=== PATIENT | female | born 1960 | race Caucasian/White ===

== ENCOUNTER 2020-01-28 06:40 | Emergency (ER) | payer OTHER ==
--- NOTE | 2020-01-28 07:29 | EDM.PDOC ---
ED HPI GENERAL MEDICAL PROBLEM - General Chief Complaint: Respiratory Problem Stated Complaint: SOB Time Seen by Provider: 01/28/20 07:26 Source of Information: Reports: Patient History Limitations: Reports: No Limitations - History of Present Illness Onset: Gradual (two to three days) Duration: Day(s): Location: Reports: Other (throat) - Related Data Allergies Allergy/AdvReac Type Severity Reaction Status Date / Time No Known Allergies Allergy Verified 01/28/20 06:42 Home Meds: Home Meds . [No Known Home Meds] 01/28/20 [History] Past Medical History HEENT History: Reports: None Cardiovascular History: Reports: None Respiratory History: Reports: None Gastrointestinal History: Reports: None Genitourinary History: Reports: None ACADEMIC SUPPORT DIRECTOR History: Reports: None Musculoskeletal History: Reports: None Neurological History: Reports: None Psychiatric History: Reports: None Endocrine/Metabolic History: Reports: None Hematologic History: Reports: None Immunologic History: Reports: None Oncologic (Cancer) History: Reports: None Dermatologic History: Reports: None - Past Surgical History Head Surgeries/Procedures: Reports: None Social & Family History - Family History Family Medical History: Noncontributory - Tobacco Use Smoking Status *Q: Never Smoker - Recreational Drug Use Recreational Drug Use: No ED ROS GENERAL - Review of Systems Review Of Systems: See Below Constitutional: Reports: No Symptoms HEENT: Reports: Throat Pain Respiratory: Reports: No Symptoms Cardiovascular: Reports: No Symptoms Endocrine: Reports: No Symptoms GI/Abdominal: Reports: No Symptoms : Reports: No Symptoms Musculoskeletal: Reports: No Symptoms Skin: Reports: No Symptoms Neurological: Reports: No Symptoms ED EXAM, GENERAL - Physical Exam Exam: See Below Exam Limited By: No Limitations General Appearance: Alert, WD/WN, No Apparent Distress Ears: Normal External Exam, Normal Canal, Hearing Grossly Normal, Normal TMs Ear Exam: Bilateral Ear: Auricle Normal, Canal Normal, TM normal Nose: Normal Inspection, Normal Mucosa, No Blood Throat/Mouth: Normal Inspection, Normal Lips, Normal Teeth, Normal Gums, Normal Oropharynx, Normal Voice, No Airway Compromise, Other (No foreign body seen) Head: Atraumatic, Normocephalic Neck: Normal Inspection, Supple, Non-Tender, Full Range of Motion Respiratory/Chest: No Respiratory Distress, Lungs Clear, Normal Breath Sounds, No Accessory Muscle Use, Chest Non-Tender Cardiovascular: Normal Peripheral Pulses, Regular Rate, Rhythm, No Edema, No Gallop, No JVD, No Murmur, No Rub GI/Abdominal: Normal Bowel Sounds, Soft, Non-Tender, No Organomegaly, No Distention, No Abnormal Bruit, No Mass (Female) Exam: Deferred Rectal (Female) Exam: Deferred Back Exam: Normal Inspection Extremities: Normal Inspection. No: Francia's Sign Neurological: Alert, Oriented, CN II-XII Intact, Normal Reflexes, No Motor/ Sensory Deficits Skin Exam: Warm, Dry, Intact, Normal Color, No Rash Lymphatic: No Adenopathy Course - Vital Signs Text/Narrative:: I talked with Dr. Rutledge (ENT) at 9:57AM and states that he will see the patient through the ED and that he will make the arrangement for the ED in [place]. I discussed this with the patient and she agrees with the transfer to see Dr. Rutledge. Last Recorded V/S: Last Vital Signs Temp 97.2 F 01/28/20 06:43 Pulse 97 01/28/20 06:43 Resp 24 H 01/28/20 06:43 BP 153/73 H 01/28/20 06:43 Pulse Ox 99 01/28/20 06:43 - Orders/Labs/Meds Orders: Active Orders 24 hr Category Date Time Status EKG 12 Lead [EKG Documentation Completion] [RC] STAT Care 01/28/20 06:54 Active Isolation [COMM] Routine Oth 01/28/20 07:29 Active Departure - Departure Time of Disposition: 10:23 Disposition: DC/Tfer to Acute Hospital 02 Condition: Good Clinical Impression: Foreign body in throat Qualifiers: Encounter type: initial encounter Qualified Code(s): T17.208A - Unspecified foreign body in pharynx causing other injury, initial encounter - Discharge Information *PRESCRIPTION DRUG MONITORING PROGRAM REVIEWED*: Yes *COPY OF PRESCRIPTION DRUG MONITORING REPORT IN PATIENT GLADYS: Yes Referrals: PCP,None [Primary Care Provider] - Forms: ED Department Discharge Additional Instructions: The patient is being transferred to Dr. Rutledge (ENT) for further evaluation today. Nothing by mouth for now. Return to the ED if your condition gets worse or should you have any questions or concerns. The following information is given to patients seen in the emergency department who are being discharged to home. This information is to outline your options for follow-up care. We provide all patients seen in our emergency department with a follow-up referral. The need for follow-up, as well as the timing and circumstances, are variable depending upon the specifics of your emergency department visit. If you don't have a primary care physician on staff, we will provide you with a referral. We always advise you to contact your personal physician following an emergency department visit to inform them of the circumstance of the visit and for follow-up with them and/or the need for any referrals to a consulting specialist. The emergency department will also refer you to a specialist when appropriate. This referral assures that you have the opportunity for follow-up care with a specialist. All of these measure are taken in an effort to provide you with optimal care, which includes your follow-up. Under all circumstances we always encourage you to contact your private physician who remains a resource for coordinating your care. When calling for follow-up care, please make the office aware that this follow-up is from your recent emergency room visit. If for any reason you are refused follow-up, please contact the [facility] Emergency Department at and asked to speak to the emergency department charge nurse. Sepsis Event Note - Evaluation Sepsis Screening Result: No Definite Risk - Focused Exam Vital Signs: Vital Signs Temp Pulse Resp BP Pulse Ox 01/28/20 06:43 97.2 F 97 24 H 153/73 H 99 Date Exam was Performed: 01/28/20 Time Exam was Performed: 10:10 - My Orders Last 24 Hours: My Active Orders 01/28/20 07:29 Isolation [COMM] Routine - Assessment/Plan Last 24 Hours: My Active Orders 01/28/20 07:29 Isolation [COMM] Routine
--- NOTE | 2020-01-28 08:24 | CT ---
CT neck Technique: Multiple axial sections through the neck were obtained. Intravenous contrast was not utilized. Reconstructed coronal and sagittal images were obtained. Comparison: No prior neck imaging is available. Findings: Visualized lung apices are clear. Submandibular and parotid salivary glands appear within normal limits. Slight widening of the sella turcica is seen believed to represent a mild so-called "empty sella". Visualized paranasal sinuses show nothing acute. Rounded opacity is seen within the right oropharyngeal soft tissues in the approximate region of the pyriform sinus. This finding measures about 3.5 mm. Hounsfield unit measurements measure in the calcific range. Uncertain if this is a foreign body or represents a small dystrophic calcification. No other soft tissue abnormalities are seen within the pharyngeal soft tissues. No other radiopaque foreign objects are seen. Impression: 1. 3.5 mm opacity within the right side of the oropharyngeal soft tissues. This occurs in the approximate region of the right pyriform sinus. As mentioned above, this has Hounsfield unit measurements of calcification and uncertain if this represents small foreign body or represents dystrophic calcification. 2. Mild empty sella which is usually considered a normal variant. 3. No additional abnormality is appreciated on this noncontrast CT study of the neck. Diagnostic code #3 Study was dictated in MDT
--- NOTE | 2020-01-28 08:24 | CR ---
Chest: 2 views of the chest were obtained. Comparison: No prior chest imaging. Heart size and mediastinum are normal. Lungs are clear with no acute parenchymal change. Bony structures appear within normal limits. Surgical clips are seen within the upper abdomen. Impression: 1. Nothing acute is appreciated on 2 view chest x-ray. Diagnostic code #2 Study was dictated in MDT
== END 2020-01-28 10:30 ==
LOC: MW.ED 06:40
DX: T17.208A Unspecified foreign body in pharynx causing other injury, initial encounter (principal)
CPT/HCPCS: 70490; 70490-26; 71046; 71046-26; 87804; 93005; 99283; 99284-25

== ENCOUNTER 2020-11-29 04:49 | Emergency (ER) | payer SELFPAY ==
[2020-11-29] MEDS ORDERED: Sodium Chloride 0.9% 10 ML Syringe FLUSH PRN (05:10)
[2020-11-29] MEDS ORDERED: Ondansetron 4 MG/2 ML SDV IVPUSH ONE (05:10)
[2020-11-29] MEDS ORDERED: Sodium Chloride 0.9% 2.5 ML Syringe FLUSH PRN (05:10)
[2020-11-29] MEDS ORDERED: Ketorolac 15 MG/ML SDV IVPUSH ONE (05:10)
[2020-11-29] MEDS ORDERED: Sodium Chloride 0.9% 1,000 ML IV ONE (05:11)
--- NOTE | 2020-11-29 05:13 | EDM.PDOC ---
ED HPI GENERAL MEDICAL PROBLEM - General Chief Complaint: Abdominal Pain Stated Complaint: LT SIDE HURTS Time Seen by Provider: 11/29/20 05:00 - History of Present Illness INITIAL COMMENTS - FREE TEXT/NARRATIVE: History of present illness: [] This pleasant 60-year-old female has suffered a mild intermittent pain for several days. It was in the right upper quadrant and right flank. She has a history of gallstones. Last night she began to have severe unrelenting horrible 10 out of 10 pain very sharply in the left flank that radiates to the left groin. Its associated with feeling feverish and having nausea. She has not vomited. She does not have paresis. Has not eaten since evening last night. Pain she has in the left flank does not seem to change with movement or respiration. Never had it before. She has no history of kidney stones only gallstones. Review of systems: As per history of present illness and below otherwise all systems reviewed and negative. Past medical history: As per history of present illness and as reviewed below otherwise noncontributory. Surgical history: As per history of present illness and as reviewed below otherwise noncontributory. Social history: No reported history of drug or alcohol abuse. Family history: As per history of present illness and as reviewed below otherwise noncontributory. Physical exam: Constitutional - well developed, well-nourished and in no acute distress HEENT - normocephalic, no evidence of trauma - external nose and mouth normal - no mass in neck and no JVD - mucosae moist EYES - full EOM, PERRL, no icterus - no evidence of inflammation, injection, or drainage Respiratory - no respiratory distress, equal bilateral expansion, lungs clear to auscultation and no abnormal lung sounds Cardiovascular - Regular Rhythm with S1 and S2 appreciated and no murmur, gallop or rub. GI - abdomen soft without distension or organomegaly - normal bowel sounds - no guard or rebound Musculoskeletal no gross deformity of long bones or joints - no tenderness, swelling or edema Neurologic - Alert and oriented times four - CN II-XII grossly intact - motor sensory and coordination symmetrically normal Psychiatric - appropriate mood and affect with normal thought content Hematologic - No petechiae or purpura - mucosa appropriate color and sclera not pale - normal nail bed color and refill Integument - no rash or evidence of trauma - normal turgor Diagnostics: [] Therapeutics: [] Impression: [] Plan: [] Definitive disposition and diagnosis as appropriate pending reevaluation and review of above. left flank Pain Score (Numeric/FACES): 10 - Related Data Allergies Allergy/AdvReac Type Severity Reaction Status Date / Time No Known Allergies Allergy Verified 11/29/20 05:21 Home Meds: Home Meds Acetaminophen/HYDROcodone [[place] 325-7.5 MG] 1 tab PO Q6H PRN #14 tablet 11/29/20 [Rx] Ondansetron [Zofran ODT] 4 mg PO Q6H PRN #10 tab.dis 11/29/20 [Rx] Past Medical History HEENT History: Reports: None Cardiovascular History: Reports: None Respiratory History: Reports: None Gastrointestinal History: Reports: None Genitourinary History: Reports: None TELEPHONER History: Reports: None Musculoskeletal History: Reports: None Neurological History: Reports: None Psychiatric History: Reports: None Endocrine/Metabolic History: Reports: None Hematologic History: Reports: None Immunologic History: Reports: None Oncologic (Cancer) History: Reports: None Dermatologic History: Reports: None - Past Surgical History Head Surgeries/Procedures: Reports: None Social & Family History - Family History Family Medical History: No Pertinent Family History ED ROS GENERAL - Review of Systems Review Of Systems: Comprehensive ROS is negative, except as noted in HPI. ED EXAM, GENERAL - Physical Exam Exam: See Below Free Text/Narrative:: My physical exam is in the HPI Course - Vital Signs Text/Narrative:: And is feeling much better. I will send her home to strain her urine and since the stone is less than 4 mm will prescribe pain medicine nausea medicine increase fluids but no Flomax. Her urologist is out of town. Will tell her to go to the clinic return or go to the neighboring community. Last Recorded V/S: Last Vital Signs Temp 35.9 C L 11/29/20 05:10 Pulse 72 11/29/20 06:00 Resp 18 11/29/20 06:00 BP 127/58 L 11/29/20 06:00 Pulse Ox 96 11/29/20 06:00 - Orders/Labs/Meds Orders: Active Orders 24 hr Category Date Time Status Sodium Chloride 0.9% [Saline Flush] Med 11/29/20 05:10 Active 10 ml FLUSH ASDIRECTED PRN Sodium Chloride 0.9% [Saline Flush] Med 11/29/20 05:10 Active 2.5 ml FLUSH ASDIRECTED PRN Saline Lock Insert [OM.PC] Stat Oth 11/29/20 05:10 Ordered Medication Orders Sodium Chloride (Saline Flush) 10 ml FLUSH ASDIRECTED PRN PRN Reason: Keep Vein Open Last Admin: 11/29/20 05:18 Dose: 10 ml Documented by: ARY Sodium Chloride (Saline Flush) 2.5 ml FLUSH ASDIRECTED PRN PRN Reason: Keep Vein Open Last Admin: 11/29/20 05:18 Dose: 2.5 ml Documented by: ARY Labs: Laboratory Tests 11/29/20 11/29/20 11/29/20 Range/Units 05:15 05:15 05:30 WBC 7.85 (4.0-11.0) K/uL RBC 4.66 (4.30-5.90) M/uL Hgb 13.3 (12.0-16.0) g/dL Hct 41.3 (36.0-46.0) % MCV 88.6 (80.0-98.0) fL MCH 28.5 (27.0-32.0) pg MCHC 32.2 (31.0-37.0) g/dL RDW Std Deviation 46.3 (28.0-62.0) fl RDW Coeff of Angi 14 (11.0-15.0) % Plt Count 235 (150-400) K/uL MPV 10.90 (7.40-12.00) fL Neut % (Auto) 49.0 (48.0-80.0) % Lymph % (Auto) 42.0 H (16.0-40.0) % [place] % (Auto) 6.4 (0.0-15.0) % Eos % (Auto) 2.2 (0.0-7.0) % Baso % (Auto) 0.4 (0.0-1.5) % Neut # (Auto) 3.9 (1.4-5.7) K/uL Lymph # (Auto) 3.3 H (0.6-2.4) K/uL [place] # (Auto) 0.5 (0.0-0.8) K/uL Eos # (Auto) 0.2 (0.0-0.7) K/uL Baso # (Auto) 0.0 (0.0-0.1) K/uL Nucleated RBC % 0.0 /100WBC Nucleated RBCs # 0 K/uL Sodium 142 (136-145) mmol/L Potassium 4.5 (3.5-5.1) mmol/L Chloride 105 (98-107) mmol/L Carbon Dioxide 27.9 (21.0-32.0) mmol/L BUN 21 H (7.0-18.0) mg/dL Creatinine 0.8 (0.6-1.0) mg/dL Est Cr Clr Drug Dosing TNP Estimated GFR (MDRD) > 60.0 ml/min Glucose 114 H (74-106) mg/dL Calcium 10.0 (8.5-10.1) mg/dL Total Bilirubin 0.2 (0.2-1.0) mg/dL AST 20 (15-37) IU/L ALT 34 (14-63) IU/L Alkaline Phosphatase 68 (46-116) U/L Total Protein 8.2 (6.4-8.2) g/dL Albumin 3.8 (3.4-5.0) g/dL Globulin 4.4 H (2.6-4.0) g/dL Albumin/Globulin Ratio 0.9 (0.9-1.6) Lipase 131 (73-393) U/L Urine Color YELLOW Urine Appearance SLT CLOUDY Urine pH 5.5 (5.0-8.0) Ur Specific [place] >= 1.030 (1.001-1.035) Urine Protein NEGATIVE (NEGATIVE) mg/dL Urine Glucose (UA) NEGATIVE (NEGATIVE) mg/dL Urine Ketones NEGATIVE (NEGATIVE) mg/dL Urine Occult Blood LARGE H (NEGATIVE) Urine Nitrite NEGATIVE (NEGATIVE) Urine Bilirubin NEGATIVE (NEGATIVE) Urine Urobilinogen 0.2 (<2.0) EU/dL Ur Leukocyte Esterase SMALL H (NEGATIVE) Urine RBC 15-20 (0-2/HPF) Urine WBC 0-3 (0-5/HPF) Ur Epithelial Cells MANY (NONE-FEW) Urine Bacteria 2+ H (NEGATIVE) Meds: Medications Generic Name Dose Route Start Last Admin Trade Name Freq PRN Reason Stop Dose Admin Sodium Chloride 10 ml 11/29/20 05:10 11/29/20 05:18 Saline Flush FLUSH 10 ml ASDIRECTED PRN Administration Keep Vein Open Sodium Chloride 2.5 ml 11/29/20 05:10 11/29/20 05:18 Saline Flush FLUSH 2.5 ml ASDIRECTED PRN Administration Keep Vein Open Discontinued Medications Generic Name Dose Route Start Last Admin Trade Name Freq PRN Reason Stop Dose Admin Sodium Chloride 1,000 mls @ 1,000 mls/hr 11/29/20 05:11 11/29/20 05:17 Normal Saline IV 11/29/20 06:10 1,000 mls/hr .Bolus ONE Administration Ketorolac Tromethamine 15 mg 11/29/20 05:10 11/29/20 05:17 Toradol IVPUSH 11/29/20 05:11 15 mg ONETIME ONE Administration Ondansetron HCl 4 mg 11/29/20 05:10 11/29/20 05:17 Zofran IVPUSH 11/29/20 05:11 4 mg ONETIME ONE Administration Departure - Departure Time of Disposition: 06:40 Disposition: Home, Self-Care 01 Condition: Good Clinical Impression: Ureteric colic, Ureteral stone - Discharge Information Prescriptions: Acetaminophen/HYDROcodone [[place] 325-7.5 MG] 1 tab PO Q6H PRN #14 tablet PRN Reason: Pain (Moderate 4-6) Ondansetron [Zofran ODT] 4 mg PO Q6H PRN #10 tab.dis PRN Reason: Nausea Instructions: Kidney Stones, [id number] Referrals: PCP,None [Primary Care Provider] - Forms: ED Department Discharge Additional Instructions: Colar toda la orina. Beber mucho lquido. Gire si hay confusin de fiebre robyn. Se enviarn analgsicos y medicamentos para las nuseas a la farmacia. La urologa no est disponible en [place] en german momento, as que emilee un seguimiento con live mdico, atencin primaria o llame a urologa en la comunidad vecina. Strain all urine. Drink plenty of fluids. Turn if high fever confusion. Pain medicine and nausea medicine will be sent to the pharmacy. Urology is unavailable in [place] at this time so follow-up with your doctor, primary care, or call urology in the neighboring community. [facility] [address] [place] [address] [facility] [address] [place] [address] La siguiente informacin se proporciona a los pacientes atendidos en el departamento de emergencias que estn siendo dados de robyn a live hogar. Esta informacin es para describir lisa opciones para la atencin de seguimiento. Proporcionamos a todos los pacientes atendidos en nuestro departamento de emergencias ethel derivacin de seguimiento. La siguiente informacin se proporciona a los pacientes atendidos en el departamento de emergencias que estn siendo dados de robyn a live hogar. Esta informacin es para describir lisa opciones para la atencin de seguimiento. Proporcionamos a todos los pacientes atendidos en nuestro departamento de emergencias ethel derivacin de seguimiento. La necesidad de seguimiento, as katia el momento y las circunstancias, varan segn los detalles de live visita al departamento de emergencias. Si no tiene un mdico de atencin primaria en el personal, le proporcionaremos ethel referencia. Siempre le aconsejamos que se ponga en contacto con live mdico personal despus de ethel visita al servicio de urgencias para informarle de las circunstancias de la visita y para realizar un seguimiento con l y / o la necesidad de cualquier derivacin a un especialista consultor. El departamento de emergencias tambin lo derivar a un especialista cuando sea apropiado. Esta remisin le asegura que tiene la oportunidad de recibir atencin de seguimiento con un especialista. Todas estas medidas se david en un esfuerzo por brindarle ethel atencin ptima, que incluye live seguimiento. En todas las circunstancias, siempre lo alentamos a que se comunique con live mdico privado, quien sigue siendo un recurso para coordinar live atencin. Cuando llame para recibir atencin de seguimiento, informe al consultorio que german seguimiento es de live visita reciente a la elizabeth de emergencias. Si por alguna razn se le niega el seguimiento, comunquese con el Departamento [facility]gencias del [facility] y solicite hablar con la enfermera a cargo del departamento de emergencias. The following information is given to patients seen in the emergency department who are being discharged to home. This information is to outline your options for follow-up care. We provide all patients seen in our emergency department with a follow-up referral. The need for follow-up, as well as the timing and circumstances, are variable depending upon the specifics of your emergency department visit. If you don't have a primary care physician on staff, we will provide you with a referral. We always advise you to contact your personal physician following an emergency department visit to inform them of the circumstance of the visit and for follow-up with them and/or the need for any referrals to a consulting specialist. The emergency department will also refer you to a specialist when appropriate. This referral assures that you have the opportunity for follow-up care with a specialist. All of these measure are taken in an effort to provide you with optimal care, which includes your follow-up. Under all circumstances we always encourage you to contact your private physician who remains a resource for coordinating your care. When calling for follow-up care, please make the office aware that this follow-up is from your recent emergency room visit. If for any reason you are refused follow-up, please contact the [facility] Emergency Department at and asked to speak to the emergency department charge nurse. Sepsis Event Note (ED) - Focused Exam Vital Signs: Vital Signs Temp Pulse Resp BP Pulse Ox 11/29/20 06:00 72 18 127/58 L 96 11/29/20 05:10 35.9 C L 80 18 138/75 97 - My Orders Last 24 Hours: My Active Orders 11/29/20 05:10 Sodium Chloride 0.9% [Saline Flush] 10 ml FLUSH ASDIRECTED PRN Sodium Chloride 0.9% [Saline Flush] 2.5 ml FLUSH ASDIRECTED PRN Saline Lock Insert [OM.PC] Stat - Assessment/Plan Last 24 Hours: My Active Orders 11/29/20 05:10 Sodium Chloride 0.9% [Saline Flush] 10 ml FLUSH ASDIRECTED PRN Sodium Chloride 0.9% [Saline Flush] 2.5 ml FLUSH ASDIRECTED PRN Saline Lock Insert [OM.PC] Stat
[2020-11-29 05:43] LABS: BLOOD UREA NITROGEN,BUN 21 mg/dL (7.0-18.0); CARBON DIOXIDE,CO2 27.9 mmol/L (21.0-32.0); CHLORIDE,CL 105 mmol/L (98-107); GLUCOSE RANDOM 114 mg/dL (74-106); LIPASE 131 U/L (73-393); POTASSIUM,K 4.5 mmol/L (3.5-5.1); SODIUM,NA 142 mmol/L (136-145)
--- NOTE | 2020-11-29 06:20 | CT ---
INDICATION: Left flank pain TECHNIQUE: Axial images were obtained from the diaphragm to the pubic symphysis. Reformats were obtained in the coronal and sagittal plane. IV Contrast: None Oral Contrast: None COMPARISON: None. FINDINGS: Lower chest: Unremarkable. Liver: Unremarkable. Normal in size and attenuation. No masses. Gallbladder and bile ducts: Status post cholecystectomy. Spleen: Unremarkable. Normal in size without mass. Pancreas: Unremarkable. No mass or inflammation. Adrenal glands: Unremarkable. No nodules. Kidneys: Nephrolithiasis with mild left hydronephrosis and an obstructing distal left ureteral stone measuring 4 x 3 millimeters. Vasculature: Unremarkable. GI tract: The stomach is unremarkable. No dilated loops of large or small intestine. Appendix is unremarkable. Mild colonic diverticulosis. Fat containing umbilical hernia. Pelvis: Unremarkable. Bones: Unremarkable for age. IMPRESSION: 1. Nephrolithiasis with mild left hydronephrosis and obstructing distal left ureteral stone measuring 4 x 3 millimeters. 2. Colonic diverticulosis. Please note that all CT scans at this facility use dose modulation, iterative reconstruction, and/or weight-based dosing when appropriate to reduce radiation dose to as low as reasonably achievable. Dictated by Regan Silva MD @ Nov 29 2020 6:08AM Signed by Dr. Regan Silva @ Nov 29 2020 6:19AM
== END 2020-11-29 06:50 | disposition home or self-care (01) ==
LOC: MW.ED 04:49
DX: N13.2 Hydronephrosis with renal and ureteral calculous obstruction (principal)
CPT/HCPCS: 36415; 74176; 80053; 81001; 83690; 85025; 96374; 96375; 99284; J1885; J2405; J7030; 99283

== ENCOUNTER 2020-12-01 04:21 | Emergency (ER) | payer SELFPAY ==
[2020-12-01] MEDS ORDERED: Sodium Chloride 0.9% 10 ML Syringe FLUSH PRN (04:26)
[2020-12-01] MEDS ORDERED: Sodium Chloride 0.9% 2.5 ML Syringe FLUSH PRN (04:26)
--- NOTE | 2020-12-01 04:29 | EDM.PDOC ---
ED HPI GENERAL MEDICAL PROBLEM - General Stated Complaint: LOWER ABD PAIN Time Seen by Provider: 12/01/20 04:34 - History of Present Illness INITIAL COMMENTS - FREE TEXT/NARRATIVE: History of present illness: [] Carla 2 days ago with ureteral stone in the distal left ureter causing hydronephrosis. She has continued pain the same. When I spoke with her yesterday she was doing a little better times with the pain medicine I had prescribed. She did markedly better in the emergency room with Toradol. The patient in 1 AM had an unbearable sharp pain in the left side. She is not vomiting. She is not diaphoretic. Nothing makes the pain better or worse if she gets a brief respite when she takes the [place]. Still passing urine and has no fever. Review of systems: As per history of present illness and below otherwise all systems reviewed and negative. Past medical history: As per history of present illness and as reviewed below otherwise noncontributory. Surgical history: As per history of present illness and as reviewed below otherwise noncontributory. Social history: No reported history of drug or alcohol abuse. Family history: As per history of present illness and as reviewed below otherwise noncontributory. Physical exam: Constitutional - well developed, well-nourished and in no acute distress HEENT - normocephalic, no evidence of trauma - external nose and mouth normal - no mass in neck and no JVD - mucosae moist EYES - full EOM, PERRL, no icterus - no evidence of inflammation, injection, or drainage Respiratory - no respiratory distress, equal bilateral expansion, lungs clear to auscultation and no abnormal lung sounds Cardiovascular - Regular Rhythm with S1 and S2 appreciated and no murmur, gallop or rub. GI - abdomen soft without distension or organomegaly - normal bowel sounds - no guard or rebound Musculoskeletal no gross deformity of long bones or joints - no tenderness, swelling or edema Neurologic - Alert and oriented times four - CN II-XII grossly intact - motor sensory and coordination symmetrically normal Psychiatric - appropriate mood and affect with normal thought content Hematologic - No petechiae or purpura - mucosa appropriate color and sclera not pale - normal nail bed color and refill Integument - no rash or evidence of trauma - normal turgor Diagnostics: [] Therapeutics: [] Impression: [] Plan: [] Definitive disposition and diagnosis as appropriate pending reevaluation and review of above. Left Lower Posterior Frontal Flank Pain Score (Numeric/FACES): 8 - Related Data Allergies Allergy/AdvReac Type Severity Reaction Status Date / Time No Known Allergies Allergy Verified 11/29/20 05:21 Home Meds: Home Meds Acetaminophen/HYDROcodone [[place] 325-7.5 MG] 1 tab PO Q6H PRN #14 tablet 11/29/20 [Rx] Ondansetron [Zofran ODT] 4 mg PO Q6H PRN #10 tab.dis 11/29/20 [Rx] Tamsulosin [Flomax] 0.4 mg PO DAILY #14 cap.er 12/01/20 [Rx] Past Medical History HEENT History: Reports: None Cardiovascular History: Reports: None Respiratory History: Reports: None Gastrointestinal History: Reports: None Genitourinary History: Reports: None TUBE CUTTER History: Reports: None Musculoskeletal History: Reports: None Neurological History: Reports: None Psychiatric History: Reports: None Endocrine/Metabolic History: Reports: None Insulin Pump Model and Tank Car Reconditioner: None Hematologic History: Reports: None Immunologic History: Reports: None Oncologic (Cancer) History: Reports: None Dermatologic History: Reports: None - Infectious Disease History Infectious Disease History: Reports: None - Past Surgical History Head Surgeries/Procedures: Reports: None Social & Family History - Family History Family Medical History: No Pertinent Family History - Caffeine Use Caffeine Use: Reports: None ED ROS GENERAL - Review of Systems Review Of Systems: Comprehensive ROS is negative, except as noted in HPI. ED EXAM, GENERAL - Physical Exam Exam: See Below Free Text/Narrative:: My physical exam is in the HPI Course - Vital Signs Text/Narrative:: 05:13 AM there is a stone is 5.9 mm now and in the same location if the stone is what identified the KUB consistent with the location of the stone on the facialist film 2 days ago for the CT. 04 03 I discussed the case with Dr. Ayala but he is actually on vacation and not coming to the hospital or the office during this time. He said give the patient Flomax and referred to [place] if necessary to have some sort of procedure. Is actually quite comfortable again after intravenous ketorolac Last Recorded V/S: Last Vital Signs Temp 36.6 C 12/01/20 04:44 Pulse 86 12/01/20 04:44 Resp 20 01/19/21 04:44 BP 115/79 12/01/20 04:44 Pulse Ox 96 12/01/20 04:44 - Orders/Labs/Meds Orders: Active Orders 24 hr Category Date Time Status KUB [Abdomen 1V Flat] [CR] Stat Exams 12/01/20 04:27 Taken Sodium Chloride 0.9% [Saline Flush] Med 12/01/20 04:26 Active 10 ml FLUSH ASDIRECTED PRN Sodium Chloride 0.9% [Saline Flush] Med 12/01/20 04:26 Active 2.5 ml FLUSH ASDIRECTED PRN Saline Lock Insert [OM.PC] Stat Oth 12/01/20 04:27 Ordered Medication Orders Sodium Chloride (Saline Flush) 10 ml FLUSH ASDIRECTED PRN PRN Reason: Keep Vein Open Last Admin: 12/01/20 04:48 Dose: 10 ml Documented by: ARY Sodium Chloride (Saline Flush) 2.5 ml FLUSH ASDIRECTED PRN PRN Reason: Keep Vein Open Last Admin: 12/01/20 04:49 Dose: 2.5 ml Documented by: ARY Labs: Laboratory Tests 12/01/20 12/01/20 12/01/20 Range/Units 04:36 04:36 04:45 WBC 11.94 H (4.0-11.0) K/uL RBC 4.91 (4.30-5.90) M/uL Hgb 13.9 (12.0-16.0) g/dL Hct 43.4 (36.0-46.0) % MCV 88.4 (80.0-98.0) fL MCH 28.3 (27.0-32.0) pg MCHC 32.0 (31.0-37.0) g/dL RDW Std Deviation 45.6 (28.0-62.0) fl RDW Coeff of Angi 14 (11.0-15.0) % Plt Count 236 (150-400) K/uL MPV 10.50 (7.40-12.00) fL Neut % (Auto) 70.2 (48.0-80.0) % Lymph % (Auto) 23.0 (16.0-40.0) % [place] % (Auto) 5.4 (0.0-15.0) % Eos % (Auto) 1.2 (0.0-7.0) % Baso % (Auto) 0.2 (0.0-1.5) % Neut # (Auto) 8.4 H (1.4-5.7) K/uL Lymph # (Auto) 2.8 H (0.6-2.4) K/uL Stearns # (Auto) 0.7 (0.0-0.8) K/uL Eos # (Auto) 0.1 (0.0-0.7) K/uL Baso # (Auto) 0.0 (0.0-0.1) K/uL Nucleated RBC % 0.0 /100WBC Nucleated RBCs # 0 K/uL Sodium 138 (136-145) mmol/L Potassium 4.8 (3.5-5.1) mmol/L Chloride 102 (98-107) mmol/L Carbon Dioxide 29.2 (21.0-32.0) mmol/L BUN 11 (7.0-18.0) mg/dL Creatinine 1.0 (0.6-1.0) mg/dL Est Cr Clr Drug Dosing 53.34 mL/min Estimated GFR (MDRD) 56.9 ml/min Glucose 119 H (74-106) mg/dL Calcium 9.5 (8.5-10.1) mg/dL Urine Color YELLOW Urine Appearance HAZY Urine pH 5.5 (5.0-8.0) Ur Specific [place] <= 1.005 (1.001-1.035) Urine Protein NEGATIVE (NEGATIVE) mg/dL Urine Glucose (UA) NEGATIVE (NEGATIVE) mg/dL Urine Ketones NEGATIVE (NEGATIVE) mg/dL Urine Occult Blood LARGE H (NEGATIVE) Urine Nitrite NEGATIVE (NEGATIVE) Urine Bilirubin NEGATIVE (NEGATIVE) Urine Urobilinogen 0.2 (<2.0) EU/dL Ur Leukocyte Esterase NEGATIVE (NEGATIVE) Urine RBC 4-6 (0-2/HPF) Urine WBC 0-2 (0-5/HPF) Ur Epithelial Cells MODERATE (NONE-FEW) Amorphous Sediment LIGHT (NEGATIVE) Urine Bacteria FEW (NEGATIVE) Urine Mucus LIGHT (NONE-MOD) Meds: Medications Generic Name Dose Route Start Last Admin Trade Name Freq PRN Reason Stop Dose Admin Sodium Chloride 10 ml 12/01/20 04:26 12/01/20 04:48 Saline Flush FLUSH 10 ml ASDIRECTED PRN Administration Keep Vein Open Sodium Chloride 2.5 ml 12/01/20 04:26 12/01/20 04:49 Saline Flush FLUSH 2.5 ml ASDIRECTED PRN Administration Keep Vein Open Discontinued Medications Generic Name Dose Route Start Last Admin Trade Name Somq PRN Reason Stop Dose Admin Ketorolac Tromethamine 15 mg 12/01/20 04:39 12/01/20 04:48 Toradol IVPUSH 12/01/20 04:40 15 mg ONETIME ONE Administration Departure - Departure Time of Disposition: Disposition: Home, Self-Care 01 Condition: Good Clinical Impression: Ureteral stone, Ureter colic - Discharge Information Instructions: Kidney Stones, [id number] Referrals: PCP,None [Primary Care Provider] - Additional Instructions: Call [facility] and ask for urology clinic appointment. [phone] You can call urologist directly and see if they will take a patient from [place] while our urologist is out of town. Dr.Michael Jc Strain your urine because once you have passed the stone he will no longer have any pain from this episode The following information is given to patients seen in the emergency department who are being discharged to home. This information is to outline your options for follow-up care. We provide all patients seen in our emergency department with a follow-up referral. The need for follow-up, as well as the timing and circumstances, are variable depending upon the specifics of your emergency department visit. If you don't have a primary care physician on staff, we will provide you with a referral. We always advise you to contact your personal physician following an emergency department visit to inform them of the circumstance of the visit and for follow-up with them and/or the need for any referrals to a consulting specialist. The emergency department will also refer you to a specialist when appropriate. This referral assures that you have the opportunity for follow-up care with a specialist. All of these measure are taken in an effort to provide you with optimal care, which includes your follow-up. Under all circumstances we always encourage you to contact your private physician who remains a resource for coordinating your care. When calling for follow-up care, please make the office aware that this follow-up is from your recent emergency room visit. If for any reason you are refused follow-up, please contact the [facility] Emergency Department at and asked to speak to the emergency department charge nurse. Translated by Google : official instructions are above in Danish: traducido por Google - las instrucciones oficiales estn arriba en ingls: Llame a [place] y [place] y solicite ethel diane en la clnica de urologa. [phone] Puede llamar al urlogo directamente y naa si aceptan a un paciente de [place] mientras nuestro urlogo est fuera de la ciudad. Dr. Linwood Jc Telfono: Cuele la orina porque ethel vez que haya eliminado el clculo, ya no tendr ningn dolor por german episodio. La siguiente informacin se proporciona a los pacientes atendidos en el departamento de emergencias que estn siendo dados de robyn a live hogar. Esta informacin es para describir lisa opciones para la atencin de seguimiento. Proporcionamos a todos los pacientes atendidos en nuestro departamento de emergencias ethel derivacin de seguimiento. La necesidad de seguimiento, as katia el momento y las circunstancias, varan segn los detalles de live visita al departamento de emergencias. Si no tiene un mdico de atencin primaria en el personal, le proporcionaremos ethel referencia. Siempre le aconsejamos que se ponga en contacto con live mdico personal despus de ethel visita al servicio de urgencias para informarle de las circunstancias de la visita y para realizar un seguimiento con l y / o la necesidad de cualquier derivacin a un especialista consultor. El departamento de emergencias tambin lo derivar a un especialista cuando sea apropiado. Esta remisin le asegura que tiene la oportunidad de recibir atencin de seguimiento con un especialista. Todas estas medidas se david en un esfuerzo por brindarle ethel atencin ptima, que incluye live seguimiento. En todas las circunstancias, siempre lo alentamos a que se comunique con live mdico privado, quien sigue siendo un recurso para coordinar live atencin. Cuando llame para recibir atencin de seguimiento, informe al consultorio que german seguimiento es de live visita reciente a la elizabeth de emergencias. Si por alguna razn se le niega el seguimiento, comunquese con el Departamento de Emergencias del [facility] al y solicite hablar con la enfermera a cargo del departamento de emergencias. Sepsis Event Note (ED) - Focused Exam Vital Signs: Vital Signs Temp Pulse Resp BP Pulse Ox 12/01/20 04:44 36.6 C 86 20 115/79 96 - My Orders Last 24 Hours: My Active Orders 12/01/20 04:26 Sodium Chloride 0.9% [Saline Flush] 10 ml FLUSH ASDIRECTED PRN Sodium Chloride 0.9% [Saline Flush] 2.5 ml FLUSH ASDIRECTED PRN 12/01/20 04:27 KUB [Abdomen 1V Flat] [CR] Stat Saline Lock Insert [OM.PC] Stat - Assessment/Plan Last 24 Hours: My Active Orders 12/01/20 04:26 Sodium Chloride 0.9% [Saline Flush] 10 ml FLUSH ASDIRECTED PRN Sodium Chloride 0.9% [Saline Flush] 2.5 ml FLUSH ASDIRECTED PRN 12/01/20 04:27 KUB [Abdomen 1V Flat] [CR] Stat Saline Lock Insert [OM.PC] Stat
[2020-12-01] MEDS ORDERED: Ketorolac 30 MG/ML SDV IVPUSH ONE (04:39)
[2020-12-01 04:59] LABS: CARBON DIOXIDE,CO2 29.2 mmol/L (21.0-32.0); POTASSIUM,K 4.8 mmol/L (3.5-5.1)
--- NOTE | 2020-12-01 05:13 | CR ---
Indication: Left ureteral stone. Worsening pain Technique: KUB 2 view Comparison: A CT dated 11/29/2020 Findings/Impression: : Several small pelvic calcifications compatible with phleboliths, seen on the recent CT, although 1 of the left pelvic calcification could represent the previously seen distal left ureteral calculus, more distally located compared to the recent CT. Apparent prominence of the left renal shadow compared to the right. A nonobstructive bowel gas pattern. Moderate colonic stool. Cholecystectomy clips. No suspicious osseous abnormality seen. Dictated by Ken Pabon MD @ Dec 01 2020 5:06AM Signed by Dr. Ken Pabon @ Dec 01 2020 5:12AM
[2020-12-01] MEDS ORDERED: Tamsulosin 0.4 MG Cap.ER PO ONE (05:20)
== END 2020-12-01 05:43 | disposition home or self-care (01) ==
LOC: MW.ED 04:21
DX: N20.1 Calculus of ureter (principal); Z79.899 Other long term (current) drug therapy
CPT/HCPCS: 36415; 74018; 80048; 81001; 85025; 96374; 99284; A9270; J1885

== ENCOUNTER 2021-08-28 14:34 | Emergency (ER) | payer SELFPAY ==
--- NOTE | 2021-08-28 14:42 | EDM.PDOC ---
ED HPI GENERAL MEDICAL PROBLEM - General Chief Complaint: Respiratory Problem Stated Complaint: SOB Time Seen by Provider: 08/28/21 14:36 Source of Information: Reports: Patient, Family, Machine Maintenance Repairer History Limitations: Reports: No Limitations - History of Present Illness INITIAL COMMENTS - FREE TEXT/NARRATIVE: 60-year-old female presents for generalized weakness and heart racing sensation. Patient was in normal state of health until around 30 minutes prior to arrival. Patient states that while standing she felt suddenly like her heart was racing and about to beat out of her chest. She also felt generalized weakness rushing from her feet to her head. She notes feeling short of breath. Patient notes that she has had several episodes of her heart racing 2-3 times the upper limit of normal but that it typically goes away on its own after some time. This is the first time that it did not go away. She has not seen a administrative services director for this. - Related Data Allergies Allergy/AdvReac Type Severity Reaction Status Date / Time No Known Allergies Allergy Verified 08/28/21 14:46 Home Meds: Home Meds Acetaminophen/HYDROcodone [[place] 325-7.5 MG] 1 tab PO Q6H PRN #14 tablet 11/29/20 [Rx] Ondansetron [Zofran ODT] 4 mg PO Q6H PRN #10 tab.dis 11/29/20 [Rx] Tamsulosin [Flomax] 0.4 mg PO DAILY #14 cap.er 12/01/20 [Rx] Metoprolol Succinate [Toprol Xl] 25 mg PO DAILY 30 Days #30 tab.er.24h 08/28/21 [Rx] Past Medical History HEENT History: Reports: None Cardiovascular History: Reports: None Respiratory History: Reports: None Gastrointestinal History: Reports: None, Cholelithiasis Genitourinary History: Reports: None CALENDER TENDER History: Reports: None Musculoskeletal History: Reports: None Neurological History: Reports: None Psychiatric History: Reports: None Endocrine/Metabolic History: Reports: None Insulin Pump Model and Web Marketing Specialist: None Hematologic History: Reports: None Immunologic History: Reports: None Oncologic (Cancer) History: Reports: None Dermatologic History: Reports: None - Infectious Disease History Infectious Disease History: Reports: None - Past Surgical History Head Surgeries/Procedures: Reports: None GI Surgical History: Reports: Cholecystectomy Social & Family History - Family History Family Medical History: No Pertinent Family History - Caffeine Use Caffeine Use: Reports: None ED ROS GENERAL - Review of Systems Review Of Systems: Comprehensive ROS is negative, except as noted in HPI. ED EXAM, GENERAL - Physical Exam Exam: See Below Exam Limited By: No Limitations General Appearance: Alert, WD/WN, No Apparent Distress Eye Exam: Bilateral Eye: EOMI, PERRL Ears: Hearing Grossly Normal Throat/Mouth: Normal Voice, No Airway Compromise Head: Atraumatic, Normocephalic Neck: Normal Inspection Respiratory/Chest: No Respiratory Distress, Lungs Clear, Normal Breath Sounds, No Accessory Muscle Use Cardiovascular: Normal Peripheral Pulses, Tachycardia Back Exam: Normal Inspection Extremities: Normal Inspection Neurological: Alert, Oriented, CN II-XII Intact, Normal Cognition, Normal Gait, No Motor/Sensory Deficits Psychiatric: Normal Affect, Normal Mood Skin Exam: Warm, Dry, Intact, Normal Color #1 Interpretation EKG Date: 08/28/21 Time: 14:36 Rhythm: Other (supraventricular tachycardia) Rate (Beats/Min): 206 [place]: Normal P-Wave: Absent QRS: Normal ST-T: Normal QT: Normal Comparison: NA - No Prior EKG EKG Interpretation Comments: Supraventricular tachycardia #2 Interpretation EKG Date: 08/28/21 Time: 14:55 Rhythm: NSR Rate (Beats/Min): 107 [place]: Normal P-Wave: Present QRS: Normal ST-T: Normal QT: Normal LA/PQ Interval: 142 Comparison: Change From Previous EKG EKG Interpretation Comments: Note reversal of leads V1 and V3, sinus tachycardia rate of 107 with 1 PVC, no acute ischemic changes Course - Vital Signs Last Recorded V/S: Last Vital Signs Temp 97.5 F 08/28/21 14:40 Pulse 91 08/28/21 15:33 Resp 20 08/28/21 15:27 BP 121/73 08/28/21 15:33 Pulse Ox 100 08/28/21 15:33 - Orders/Labs/Meds Orders: Active Orders 24 hr Category Date Time Status Cardiac Monitoring [RC] . DIRECTED Care 08/28/21 14:46 Active Pulse Oximetry [RC] ASDIRECTED Care 08/28/21 14:46 Active Sodium Chloride 0.9% [Normal Saline] 1,000 ml Med 08/28/21 15:16 Active IV .Bolus Saline Lock Insert [OM.PC] Stat Oth 08/28/21 14:46 Ordered Medication Orders Sodium Chloride (Normal Saline) 1,000 mls @ 999 mls/hr IV .Bolus ONE Stop: 08/28/21 16:16 Last Admin: 08/28/21 15:24 Dose: 999 mls/hr Documented by: PORSHA Labs: Laboratory Tests 08/28/21 08/28/21 Range/Units 14:52 14:52 WBC 13.29 H (4.0-11.0) K/uL RBC 5.18 (4.30-5.90) M/uL Hgb 14.9 (12.0-16.0) g/dL Hct 44.4 (36.0-46.0) % MCV 85.7 (80.0-98.0) fL MCH 28.8 (27.0-32.0) pg MCHC 33.6 (31.0-37.0) g/dL RDW Std Deviation 44.3 (28.0-62.0) fl RDW Coeff of Angi 14 (11.0-15.0) % Plt Count 297 (150-400) K/uL MPV 11.00 (7.40-12.00) fL Neut % (Auto) 50.3 (48.0-80.0) % Lymph % (Auto) 43.4 H (16.0-40.0) % [place] % (Auto) 4.2 (0.0-15.0) % Eos % (Auto) 1.7 (0.0-7.0) % Baso % (Auto) 0.4 (0.0-1.5) % Neut # (Auto) 6.7 H (1.4-5.7) K/uL Lymph # (Auto) 5.8 H (0.6-2.4) K/uL [place] # (Auto) 0.6 (0.0-0.8) K/uL Eos # (Auto) 0.2 (0.0-0.7) K/uL Baso # (Auto) 0.1 (0.0-0.1) K/uL Nucleated RBC % 0.0 /100WBC Nucleated RBCs # 0 K/uL Sodium 139 (136-145) mmol/L Potassium 4.4 (3.5-5.1) mmol/L Chloride 101 (98-107) mmol/L Carbon Dioxide 27.9 (21.0-32.0) mmol/L BUN 21 H (7.0-18.0) mg/dL Creatinine 1.0 (0.6-1.0) mg/dL Est Cr Clr Drug Dosing 55.09 mL/min Estimated GFR (MDRD) 56.9 ml/min Glucose 130 H (74-106) mg/dL Calcium 9.0 (8.5-10.1) mg/dL Total Bilirubin 0.3 (0.2-1.0) mg/dL AST 32 (15-37) IU/L ALT 42 (14-63) IU/L Alkaline Phosphatase 81 (46-116) U/L Troponin I < 0.050 (0.000-0.056) ng/mL Total Protein 8.2 (6.4-8.2) g/dL Albumin 3.8 (3.4-5.0) g/dL Globulin 4.4 H (2.6-4.0) g/dL Albumin/Globulin Ratio 0.9 (0.9-1.6) Free T4 1.08 (0.76-1.46) ng/dL TSH, Ultra Sensitive 4.88 H (0.36-3.74) uIU/mL Meds: Medications Generic Name Dose Route Start Last Admin Trade Name Freq PRN Reason Stop Dose Admin Sodium Chloride 1,000 mls @ 999 mls/hr 08/28/21 15:16 08/28/21 15:24 Normal Saline IV 08/28/21 16:16 999 mls/hr .Bolus ONE Administration Discontinued Medications Generic Name Dose Route Start Last Admin Trade Name Freq PRN Reason Stop Dose Admin Adenosine 6 mg 08/28/21 14:46 08/28/21 15:03 Adenosine 6 Mg/2 Ml Sdv IVPUSH 08/28/21 14:47 6 mg NOW ONE Administration Adenosine 12 mg 08/28/21 14:46 08/28/21 15:03 Adenosine 6 Mg/2 Ml Sdv IVPUSH 08/28/21 14:47 Not Given NOW ONE Metoprolol Tartrate 5 mg 08/28/21 15:01 08/28/21 15:24 Metoprolol Tartrate 5 Mg/5 Ml Sdv IVPUSH 08/28/21 15:02 5 mg ONETIME ONE Administration - Re-Assessments/Exams Free Text/Narrative Re-Assessment/Exam: 08/28/21 14:48 EKG is remarkable for supraventricular tachycardia. Will trial adenosine. 08/28/21 15:02 Patient with good response to adenosine 6 mg. Heart rate down to 107. Repeat EKG as documented. 08/28/21 15:54 Labs are grossly unremarkable. Will discharge patient with cardiology follow- up. She has been placed on a cardiology referral list. I did prescribe metoprolol 25 mg daily and recommend that she takes this. Return precautions were discussed with patient and daughter at length. Departure - Departure Time of Disposition: 15:55 Disposition: Home, Self-Care 01 Condition: Good Clinical Impression: SVT (supraventricular tachycardia) - Discharge Information Prescriptions: Metoprolol Succinate [Toprol Xl] 25 mg PO DAILY 30 Days #30 tab.er.24h Instructions: Supraventricular Tachycardia, Adult Forms: ED Department Discharge Additional Instructions: Live corazn estaba en un ritmo anormal llamado taquicardia supraventricular. Segn live historial, parece que esto oliver sucedido varias veces en el pasado. Deber realizar un seguimiento con un cardilogo. He proporcionado informacin a continuacin para nuestro cardilogo local y tambin lo he incluido en nuestra lista de seguimiento. Deberan llamarlo para concertar ethel diane; sin embargo, si no llaman, live informacin se proporciona a continuacin. Le escrib ethel receta para un medicamento llamado metoprolol. [place] fue enviado a la [facility] en el [facility]. German medicamento atena la respuesta del corazn a la adrenalina natural, lo que hace que sea menos probable que esto vuelva a suceder. Desafortunadamente, a veces esto puede ocurrir a pesar de rosario medicamentos, por lo que si siente que live corazn se acelera de nuevo y no desaparece despus de 5 minutos, regrese al departamento de emergencias. [facility] [address] [place] [address], [place] [address] La siguiente informacin se dione a los pacientes atendidos en el departamento de emergencias que estn siendo dados de robyn a live hogar. Esta informacin es para describir lisa opciones para la atencin de seguimiento. Proporcionamos a todos los pacientes atendidos en nuestro departamento de emergencias ethel derivacin de seguimiento. La necesidad de seguimiento, as katia el momento y las circunstancias, varan segn los detalles de live visita al departamento de emergencias. Si no tiene un mdico de atencin primaria en el personal, le proporcionaremos ethel referencia. Siempre le recomendamos que se ponga en contacto con live mdico personal despus de ethel visita al servicio de urgencias para informarle de las circunstancias de la visita y para hacer un seguimiento con l y / o la necesidad de cualquier derivacin a un especialista consultor. El departamento de emergencias tambin lo derivar a un especialista cuando sea apropiado. Esta remisin le asegura que tiene la oportunidad de recibir atencin de seguimiento con un especialista. Todas estas medidas se david en un esfuerzo por brindarle ethel atencin ptima, que incluye live seguimiento. En todas las circunstancias, siempre lo alentamos a que se comunique con live mdico privado, quien sigue siendo un recurso para coordinar live atencin. Cuando llame para recibir atencin de seguimiento, informe al consultorio que german seguimiento es de live visita reciente a la elizabeth de emergencias. Si por alguna razn se le niega el seguimiento, comunquese con el Departamento de Emergencias del [facility] al y solicite hablar con la enfermera a cargo del departamento de emergencias. Alejandra un seguimiento con live mdico de atencin primaria. Si no tiene un mdico de atencin primaria, consulte a continuacin: [facility] [address], [place] [id number] [facility] [address] [place], [place] [id number] [facility] [address], [place] [address] German texto fue traducido usando el traductor de [employer]; Lo siento si hay algn error. Sepsis Event Note (ED) - Focused Exam Vital Signs: Vital Signs Temp Pulse Pulse Resp BP BP Pulse Ox 08/28/21 15:33 91 121/73 100 08/28/21 15:27 103 H 20 129/71 98 08/28/21 15:24 102 H 129/71 08/28/21 15:02 107 H 22 H 137/79 98 08/28/21 15:00 206 H 22 H 138/90 96 08/28/21 14:40 97.5 F 209 H 28 H 144/98 H 98 - My Orders Last 24 Hours: My Active Orders 08/28/21 14:46 Cardiac Monitoring [RC] . DIRECTED Pulse Oximetry [RC] ASDIRECTED Saline Lock Insert [OM.PC] Stat 08/28/21 15:16 Sodium Chloride 0.9% [Normal Saline] 1,000 ml IV .Bolus - Assessment/Plan Last 24 Hours: My Active Orders 08/28/21 14:46 Cardiac Monitoring [RC] . DIRECTED Pulse Oximetry [RC] ASDIRECTED Saline Lock Insert [OM.PC] Stat 08/28/21 15:16 Sodium Chloride 0.9% [Normal Saline] 1,000 ml IV .Bolus
[2021-08-28] MEDS ORDERED: Adenosine 6 MG/2 ML SDV IVPUSH ONE ×2 (14:46)
[2021-08-28] MEDS ORDERED: Metoprolol Tartrate 5 MG/5 ML SDV IVPUSH ONE (15:01)
[2021-08-28] MEDS ORDERED: Sodium Chloride 0.9% 1,000 ML IV ONE (15:16)
[2021-08-28 15:27] LABS: BLOOD UREA NITROGEN,BUN 21 mg/dL (7.0-18.0); CARBON DIOXIDE,CO2 27.9 mmol/L (21.0-32.0); CHLORIDE,CL 101 mmol/L (98-107); GLUCOSE RANDOM 130 mg/dL (74-106); POTASSIUM,K 4.4 mmol/L (3.5-5.1); SODIUM,NA 139 mmol/L (136-145)
== END 2021-08-28 16:00 | disposition home or self-care (01) ==
LOC: MW.ED 14:34
DX: I47.1 Supraventricular tachycardia (principal)
CPT/HCPCS: 36415; 80053; 84439; 84443; 84484; 85025; 93005; 96374; 96375; 99285; J0153; J3490; J7030